=== PATIENT | female | born 1935 | race Caucasian/White ===

== ENCOUNTER 2016-11-11 13:56 | Observation (INO) | payer MEDICARE, BC ==
[~2016-11-11] VITALS: Ht 157.5 cm; Wt 67.6 kg
[~2016-11-11 13:56] MED LIST: ALDACTONE25 MG PO; AMLO5TAB PO; ASPIRIN CHILDRE81 M1 PO; BACTRIM DS 8001 TA1 PO; BACTRIM DS 8001 TAB PO; BISOPROLOL 5MG T5 MG PO; BISOPROLOL/HCTZ1 TA2 PO; BISOPROLOL10 MG PO; BUSPIRONE 5MG TA5 MG; BYSTOLIC5 MG PO; DIGOX0.125 MG PO; DILTIAZEM HCL180 MG PO; FISH OIL1000 MG; FUROSEMIDE 20MG20 MG PO; LEVOTHYROXIN0.075 M3 PO; LOSARTAN POTASS50 MG PO; LOVASTATIN40 MG PO; MICROZIDE12.5 MG PO; MOTRIN 600MG.600 MG PO; NAMENDA XR28 MG PO; NITROLINGU0.4 MG/ACT SL; OMEPRAZOLE20 MG PO; PREMARIN 0.3MG0.3 MG PO; PYRIDIUM100 MG PO; SYNTHROID 0.00.05 MG PO; XARELTO STARTER20 MG PO; XARELTO15 MG PO
[2016-11-11 14:00] VITALS: BP 91/46
[2016-11-11 14:19] LABS: HEMOGLOBIN 10.9 g/dL (12.2-16.2)
[2016-11-11 14:20] LABS: LYMPH % 15.8 % (10-50.0)
[2016-11-11 14:21] LABS: LYMPH # 1.6 K/mm3 (0.7-4.5)
--- NOTE | 2016-11-11 14:27 | Emergency Room Report ---
History of Present Illness Time Seen by MD Smyth Presenting Problem in Triage Pt arrived:Wheelchair Presenting Problem:PT ADVISES THAT WHILE SITTING DOWN AT A [employer] TO EAT, SHE BEGAN TO FEEL DIZZY AND ALMOST PASSED OUT. PT C/O FEELING WEAK. 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 N Clinical Suspician of Infection? N Mental Status: 1 - Regular (Normal Baseline) Sepsis Risk:Low Sepsis Risk Have you (or family members/close friends) recently traveled outside the [place]? N If Yes, where/when: Have you had exposure to infectious disease within the past month? N TB? Other? Specify: Patient feels dizzy when she stands up. Today she felt dizzy while sitting and had a near syncopal episode witnessed by family. No chest pain or palpitations. No congestion. No fever or vomiting. No cephalgia or abdominal pain. Has extensive cardiac hx, reports is a candidate strictly for medical treatment, no further invasive therapy. Has PM/Debrillator. ALLERGIES Coded Allergies: No Known Allergies (05/13/16) Home Medications Reported Medications Lovastatin 40 MG PO DAILY DILTIAZEM HCL (Diltiazem 24HR ER) 180 MG PO DAILY NEBIVOLOL HCL (Bystolic) 10 MG PO DAILY Furosemide (Furosemide) 40 MG PO DAILY Spironolactone (Aldactone) 25 MG PO DAILY Digoxin (Digox) 0.125 MG PO DAILY Nitroglycerin (Nitrolingual [place]) 1 SPRAY SL PRN PRN CHEST PAIN MEMANTINE HCL (Namenda XR) 28 MG PO DAILY Rivaroxaban (Xarelto) 15 MG PO QPM LEVOTHYROXINE SOD (Levothyroxine 0.075MG Tablet) 0.075 MG PO DAILY Omeprazole (Omeprazole 20MG) 1 TAB PO DAILY History Medical History General CAD? No Angina: Yes [place]: Yes Hypertension? Yes Hyperlipidemia? Yes CHF? No DVT? No PE? No COPD? Yes Asthma? Yes Anemia? No GERD? Yes Gastric ulcers? No GI Bleed? No Hernia? No Thyroid Problems? Yes Hypothyroidism? Yes CVA? No Seizures? No Diabetes? No Renal Insuffiency? No End Stage Renal Disease? No UTI? No Stones? No BPH? No GB Disease: Yes Nephritic Syndrome? No Asplenia? No Hepatitis? No Sickle Cell Disease? No Arthritis? No Migraines? No Cataracts? Yes Glaucoma? No MRSA? No HIV? No TB? No Anxiety? No Depression? No Cancer? No More? No Immunization Hx DT/Tetanus 1-4 Years Ago Flu 2016-17FSN Pneumonia Received In Past Surgical Hx Previous Surgery?Y Gallbladd Hysterect Eye Coronary Artery Bypass HEART STENTS PACEMAKER PLACEMENT Family History Family Hx Diabetes Yes CAD Yes Hypertension Yes Hyperlipidemia Yes Cancer Yes TB Yes Social History Smoking Hx Smoker: Never Smoker Tobacco: No Alcohol Alcohol: No Review of Systems All Other Systems Reviewed and Negative Psychiatric/Neurological see HPI Comment hemoglobin was 11.4 earlier this year Physical Exam Vital Signs Vital Signs Date Time Temp Pulse Resp B/P Pulse O2 O2 Flow FiO2 Ox Delivery Rate 11/11 1443 70 16 99/50 99 11/11 1400 98.4 70 16 91/46 99 General Appearance normal appearance, WD/WN, no apparent distress Eye Exam - bilateral eye normal exam, bilateral eye PERRL, bilateral eye EOMI (no diplopia) Ear, Nose, Throat hearing grossly normal, normal ENT inspection, normal pharynx (OP wet) Neck normal inspection, non-tender, supple, full range of motion Respiratory Status Yes: trachea midline, chest symmetrical, non tender chest. No: respiratory distress, tender on palpation, use of accessory muscles, pain on inspiration, pain on expiration, productive cough, non productive cough. Lung Sounds bilateral: normal breath sounds, lungs clear. Cardiovascular normal exam, regular rate/rhythm, no peripheral edema, no gallop, no JVD, no murmur, no rub, normal peripheral pulses Gastrointestinal normal bowel sounds, normal exam, non tender, soft, no organomegaly, no pulsatile mass, no guarding, no rebound Extremities non-tender, normal range of motion, normal inspection, normal capillary refill, no calf tenderness, no pedal edema, pelvis stable Strength 5 Upper Ext (L), 5 Upper Ext (R), 5 Lower Ext (L), 5 Lower Ext (R) Neurologic alert, protocol officer II-XII nml as tested, normal exam, no motor/sensory deficits, oriented x 3 (speech clear; no tremor), NIHSS 0 as checked Glascow Coma Scale Glascow Coma Scale Response Value EYE response: 4 Spontaneously 4 MOTOR response: 6 OBEYS 6 VERBAL response: 5 Oriented & Converses 5 Total 15 Reflexes DTR 2+ ankle (R), 2+ ankle (L) Skin intact, normal color, warm/dry Medical Decision Making LABS/Meds/Orders Pt receiving controlled substance in ED? No Results/Orders Laboratory Tests 11/11/16 1405: Sodium 136, Potassium 4.7, Chloride 101, Carbon Dioxide 22, BUN 62 H, Creatinine 2.7 H, Estimated Creat Clear 16 L, Estimated GFR (MDRD) 17 *L, Glucose 117 H, Calcium 9.1, Total Bilirubin 0.4, AST 14 L, ALT 21, Alkaline Phosphatase 101, Creatine Kinase 39, CK-MB (CK-2) Rel Index 1.8, CK and CKMB Interp 0.7, Troponin I 0.02, Total Protein 8.4 H, Albumin 3.3 L, Globulin 5.1 H, Albumin/Globulin Ratio 0.6 L, WBC 9.9, RBC 3.92 L, Hgb 10.9 L, Hct 33.9 L , MCV 86.6, RDW 17.3, Plt Count 264, Gran % 79.5, Gran # 7.9 H, Lymphocytes % 15.8, Monocytes % 4.7, Lymphocytes # 1.6, Monocytes # 0.5, PUBS MCHC 32.2, MCH 27.8 Current Medication Orders Sig/Ruddy Start time Last Medication Dose Route Stop Time Status Admin Sodium Chloride 1,000 ML .Q4H 11/11 1515 AC 11/11 IV 11/11 1914 1531 Sodium Chloride 10 ML PRN PRN 11/11 1515 AC IV 11/12 1506 Sodium Chloride 10 ML PRN PRN 11/11 1415 AC IV 11/12 1407 Orders Procedure Date/time Status DIET-NOTHING BY MOUTH 11/11 D Active Decision to admit 11/11 1520 Active GEN NSG/PT REQ (NOT FOR MEDS!) 11/[address] HEAD REQ 11/11 1415 Complete ELECTROCARDIOGRAM REQUEST 11/11 1407 Active CHEST-PORTABLE 11/11 1407 Active IV SALINE LOCK 11/11 1407 Active CBC WITH AUTO DIFF 11/11 1407 Complete CARDIAC ENZYMES 11/11 1407 Complete CHEM 12 PROFILE 11/11 1407 Complete 12 LEAD EKG-CYNTHIA (INITIAL) 11/11 UNK Active CM/EKG CM/EKG EKG rate, NSR, rhythm, no evid. of ischemic chgs, no ectopy, normal QRS, normal MD, normal EKG (paced vent. rhythm 70) XRAY/CT/US XRAY/CT/US XRAY chest XR interpretation by reviewed by me Xray Results normal/NAD (PM, sternotomy wires neg acute) CT head CT interpretation by reviewed by me, discussed w/radiologist Time results known: 151 CT Results normal/NAD Consult MD Physician Consult Time Called 1513 Reason Pt. Condition Comments Dr. Cynthia elkins. Progress ED Progress Notes Date 11/11/16 Time 1548 Comment BP goes to 70's systolic when standing with positive lightheadedness. Have initiated fluids and admission. Departure Departure Time of Disposition 1515 Disposition Still a Patient Clinical Impression Primary Impression: Orthostatic hypotension Secondary Impressions: Near syncope Condition STABLE ED Critical Care Critical Care No at 1548
--- NOTE | 2016-11-11 15:14 | RADIOLOGY REPORT PS360 ---
CT HEAD W/O CONTRAST COMPARISON: HISTORY: Dizziness TECHNIQUE: Multiaxial scans obtained from base skull to the vertex and were performed without IV contrast. FINDINGS: The base of skull appears grossly normal, the mastoids are clear. Both internal auditory canals appear normal. There is minimal fluid in the right ethmoid sinuses. The basilar cisterns are mildly prominent. The ventricular system is normal for age. The sylvian fissures and cortical sulci are somewhat prominent. There are periventricular hypodensities consistent with chronic ischemic white matter changes. There is no bleed and there are no extra-axial fluid collections. The bony calvarium appears intact. IMPRESSION: 1. Findings of age-appropriate cortical atrophy with moderate chronic ischemic periventricular white matter changes. 2. Possible mild right ethmoid sinusitis
--- NOTE | 2016-11-11 15:58 | RADIOLOGY REPORT PS360 ---
CHEST-PORTABLE COMPARISON: Portable upright chest 05/13/2016 HISTORY: Dizziness TECHNIQUE: AP upright chest FINDINGS: There is mild hyperexpansion of lung whitfield but I see no infiltrate. Sternal wire sutures are again noted. The A ICD device with bipolar electrodes is again noted. There are calcified granulomata left lung field. There is no pneumothorax. IMPRESSION: Nonacute chest findings
--- NOTE | 2016-11-11 17:44 | HISTORY AND PHYSICAL REPORT ---
Demographics: Admit date: 11/11/16 Chief complaint: Syncope/dizziness PRIMARY DIAGNOSIS: acute kidney injury Allergies: Coded Allergies: No Known Allergies (05/13/16) History of present illness: History of present illness: 81-year-old white female with a history of congestive heart failure, ejection fraction 40 percent on echocardiogram May 2016, along with recurrent dysrhythmia status post pacemaker implantation and chronic atrial fibrillation currently on Xarelto therapy, who presented to the emergency department after an episode of syncope at a local restaurant while eating lunch with family. She states that she has felt poorly over the past couple of weeks with increasing cough and some shortness of air, has felt like her ALLERGIES are becoming worse, and yesterday had a quite exhausting day going to a local community meeting and then lunch with her siblings today. Her daughters report that she does not drink a lot of water or other fluids during the day and they are always encouraging her to drink. In the emergency department she was found to have elevated BUN and creatinine over baseline. Other labs were essentially unremarkable, admitted to hospital for IV fluids and further diagnostic testing. Past medical history: Family HX Diabetes Yes CAD Yes Hypertension Yes Hyperlipidemia Yes Cancer Yes TB Yes Immunization HX DT/Tetanus 1-4 Years Ago Flu 2015-FSN Pneumonia Received In Past General CAD? No Angina: Yes [place]: Yes Hypertension? Yes Hyperlipidemia? Yes CHF? No DVT? No PE? No COPD? Yes Asthma? Yes Anemia? No GERD? Yes Gastric ulcers? No GI Bleed? No Hernia? No Thyroid Problems? Yes Hypothyroidism? Yes CVA? No Seizures? No Diabetes? No Renal Insuffiency? No UTI? No Stones? No BPH? No GB Disease: Yes Nephritic Syndrome? No Asplenia? No Hepatitis? No Sickle Cell Disease? No Arthritis? No Migraines? No Cataracts? Yes Glaucoma? No MRSA? No HIV? No TB? No Anxiety? No Depression? No Cancer? No More? No Past Surgical HX Previous Surgery?Y Gallbladd Hysterect Eye Coronary Artery Bypass HEART STENTS PACEMAKER PLACEMENT Current home meds: Reported Medications Lovastatin 40 MG PO DAILY DILTIAZEM HCL (Diltiazem 24HR ER) 180 MG PO DAILY NEBIVOLOL HCL (Bystolic) 10 MG PO DAILY Furosemide (Furosemide) 40 MG PO DAILY Spironolactone (Aldactone) 25 MG PO DAILY Digoxin (Digox) 0.125 MG PO DAILY Nitroglycerin (Nitrolingual [place]) 1 SPRAY SL PRN PRN CHEST PAIN MEMANTINE HCL (Namenda XR) 28 MG PO DAILY Rivaroxaban (Xarelto) 15 MG PO QPM LEVOTHYROXINE SOD (Levothyroxine 0.075MG Tablet) 0.075 MG PO DAILY Omeprazole (Omeprazole 20MG) 1 TAB PO DAILY Social Hx: Smoking HX Tobacco No Alcohol Alcohol: No Hx of Drug Use Drug Use? No Patien't marital status is Patient's support system is good Review of systems: Constitutional malaise, weakness. No: fever. Respiratory cough, shortness of breath, SOB with excertion, SOB at rest. No: stridor, wheezing. Cardiovascular see HPI Gastrointestinal/Abdominal poor appetite, poor fluid intake Genitourinary No: no symptoms reported. Musculoskeletal back pain. Neurological Yes: see HPI, weakness. Exam: Lab data for last 24 hours: Laboratory Tests 11/11/16 1405: Sodium 136, Potassium 4.7, Chloride 101, Carbon Dioxide 22, BUN 62 H, Creatinine 2.7 H, Estimated Creat Clear 16 L, Estimated GFR (MDRD) 17 *L, Glucose 117 H, Calcium 9.1, Total Bilirubin 0.4, AST 14 L, ALT 21, Alkaline Phosphatase 101, Creatine Kinase 39, CK-MB (CK-2) Rel Index 1.8, CK and CKMB Interp 0.7, Troponin I 0.02, Total Protein 8.4 H, Albumin 3.3 L, Globulin 5.1 H, Albumin/Globulin Ratio 0.6 L, WBC 9.9, RBC 3.92 L, Hgb 10.9 L, Hct 33.9 L , MCV 86.6, RDW 17.3, Plt Count 264, Gran % 79.5, Gran # 7.9 H, Lymphocytes % 15.8, Monocytes % 4.7, Lymphocytes # 1.6, Monocytes # 0.5, PUBS MCHC 32.2, MCH 27.8, Digoxin 2.44 Admission vital signs: 1ST Vital Signs Result Date Time Pulse Ox 99 11/11 1400 B/P 91/46 11/11 1400 Temp 98.4 11/11 1400 Pulse 70 11/11 1400 Resp 16 11/11 1400 Additional information: Patient is pleasant, talkative and has a hoarse voice over her baseline. She has postnasal drainage but no actual redness of the throat. ENT exam otherwise clear. Lungs clear bilaterally in the anterior and posterior whitfield, heart rate regular, occasional ectopic beat. Flow murmur as previously noted. Abdomen soft and nontender, no skin turgor dry. Neurologic exam intact with no facial nerve deficits and able to move all extremities but global weakness noted. Plan: Problem List 1. Syncope Status Chronic 2. Chronic a-fib 3. Orthostatic hypotension 4. Acute kidney injury 5. Febrile illness Plan: Probable dehydration in this patient on dual diuretic therapy. Gentle hydration overnight. I'm a little concerned about the temperature elevation in the hospital. Check throat cultures, PCR testing. Repeat chest x-ray tomorrow after hydration if clinically appropriate. Check urinalysis and urine culture. Hold diuretics. Continue beta yunior. Continue anticoagulation therapy. at 1696
[2016-11-11 17:45] VITALS: BP 123/56
[2016-11-11 17:57] VITALS: BP 123/56
[2016-11-11] MEDS ORDERED: PREMARIN 0.3MG0.3 MG PO (18:50)
[2016-11-11] MEDS ORDERED: LOSARTAN POTASS50 MG PO (18:52)
[2016-11-11] MEDS ORDERED: COREG 3.125M3.125 MG PO (18:53)
[2016-11-11 19:44] LABS: CORONAVIRUS 229E NOT DETECTED (NOT DETECTE); CORONAVIRUS HKU 1 NOT DETECTED (NOT DETECTE); CORONAVIRUS NL63 NOT DETECTED (NOT DETECTE); CORONAVIRUS OC43 NOT DETECTED (NOT DETECTE); RHINOVIRUS/ENTEROVIRUS NOT DETECTED (NOT DETECTE)
[2016-11-11 20:00] VITALS: BP 108/56
[2016-11-11 22:20] LABS: URINE BILIRUBIN - DIPSTICK NEGATIVE (NEG); URINE BLOOD NEGATIVE (NEG)
[2016-11-12] VITALS (7 sets, daily range): BP systolic 107–138; BP diastolic 56–72
[2016-11-12 07:51] LABS: LYMPH % 24.4 % (10-50.0)
--- NOTE | 2016-11-12 08:12 | ACUTE CARE PROGRESS NOTE (QUA) ---
Progress Notes Subjective Date 11/12/16 Time 0810 Patient/family reports: feeling better, no complaints (good po) Nursing reports: alert, no complaints Objective Findings Last VS-Temp:97.5 B/P:132/69 Pulse:70 Resp:18 SaO2:98 ROOM AIR Last weight lbs:149 oz:0 K.586 Method:Bed Scales Exam General appearance: alert, active Eyes: anicteric ENT: normal exam, mucous membranes moist Cardiovascular: no JVD, no ectopics Respiratory: aerating well Assessment/Plan Problem List 1. Syncope Status: Chronic 2. Chronic a-fib 3. Orthostatic hypotension 4. Acute kidney injury 5. Febrile illness Patient condition Improving Plan: continue current care, Creatinine now 2.1 - one more day of IVF - d/c in am? This inpt stay is expected to cross 2 MNs from start of care No at 0811
[2016-11-12 08:14] LABS: HEMOGLOBIN 9.4 g/dL (12.2-16.2)
--- NOTE | 2016-11-12 13:37 | PHARMACY CLINIC NOTE ---
Patient Demographics Patient Demographics Admission date: 11/11/16 Date: 11/12/16 Time: 1335 Allergies Coded Allergies: No Known Allergies (05/13/16) HEIGHT- FT: 5 IN: 2.00 K.586 VTE General Information Labs: Laboratory Tests 11/12 11/11 0608 1405 Hematology Hgb (12.2 - 16.2 g/dL) 9.4 L 10.9 L Hct (37.0 - 47.0 %) 28.3 L 33.9 L Plt Count (142 - 424 K/mm3) 223 264 Disclaimer The following section includes nursing documentation that has been pulled in for pharmacy review. Patient's VTE score: 2 Patient's VTE Risk: VERY LOW RISK Clinical trial participant? No VTE prophylaxis NQF [id number] VTE prophylaxis ordered? Yes Type of prophylaxis/treatment: Heparin (XARELTO ORDERED), BEVERLY at [phone]
[2016-11-13 00:07] VITALS: BP 125/72
[2016-11-13 04:25] VITALS: BP 146/82
--- NOTE | 2016-11-13 07:30 | ACUTE CARE PROGRESS NOTE (QUA) ---
Progress Notes Subjective Date 11/13/16 Time 0729 Note Patient feels better, has been eating breakfast well and drinking some hot chocolate. No nausea, no vomiting, good urine output. Patient alert, lungs clear, heart rate regular, abdomen soft. Objective Findings Laboratory Tests 11/13/16 0620: Sodium 142, Potassium 4.3, Chloride 113 H, Carbon Dioxide 19 L, BUN 32 H, Creatinine 1.6 H, Estimated Creat Clear 28 L, Estimated GFR (MDRD) 31 L, Glucose 100, Calcium 7.8 L Last VS-Temp:98.1 B/P:146/82 Pulse:78 Resp:18 SaO2:97 ROOM AIR Last weight lbs:149 oz:0 K.586 Method:Bed Scales Assessment/Plan Problem List 1. Syncope Status: Chronic 2. Chronic a-fib 3. Orthostatic hypotension 4. Acute kidney injury 5. Febrile illness Patient condition Improving Plan: initiate discharge plan This inpt stay is expected to cross 2 MNs from start of care No at 0793
--- NOTE | 2016-11-13 07:31 | DISCHARGE SUMMARY STANDARD ---
Demographics Admit date: 11/11/16 Discharge date: 11/13/16 History of present illness History of present illness 81-year-old white female with a history of congestive heart failure, ejection fraction 40 percent on echocardiogram May 2016, along with recurrent dysrhythmia status post pacemaker implantation and chronic atrial fibrillation currently on Xarelto therapy, who presented to the emergency department after an episode of syncope at a local restaurant while eating lunch with family. She states that she has felt poorly over the past couple of weeks with increasing cough and some shortness of air, has felt like her ALLERGIES are becoming worse, and yesterday had a quite exhausting day going to a local [employer] meeting and then lunch with her siblings today. Her daughters report that she does not drink a lot of water or other fluids during the day and they are always encouraging her to drink. In the emergency department she was found to have elevated BUN and creatinine over baseline. Other labs were essentially unremarkable, admitted to hospital for IV fluids and further diagnostic testing. Hospital Course Hospital Course: Patient was admitted, cautious IV fluids were started and her creatinine improved in a stepwise fashion from 2.6 down to this morning's level of 1.6. This is close to her baseline. She's had good urine output, good by mouth intake. Exam has normalized to her baseline. She'll be discharged home today with instructions to slightly be more aggressive with hydration. I will ask her to hold her spironolactone until I see her in the office on Monday, 2016 with a BMP at that point. Discharge diagnoses Problem List 1. Syncope Status Chronic 2. Chronic a-fib 3. Orthostatic hypotension 4. Acute kidney injury 5. Febrile illness Medications Medications: Discharge meds are as noted. Follow up Follow up in office in: 3 DAYS with: Issa Nuñez MD at 2872
[2016-11-13 07:46] VITALS: BP 146/82
[2016-11-13 07:54] VITALS: BP 116/61
[2016-11-13 09:07] VITALS: BP 116/61
--- OUTSIDE RECORDS SUMMARY | 2016-12-06 12:43 | External Medical Summary Rpt ---
Author Author , HEYDI MAURERJOSEPH Address Unknown Phone [email or web address] Care Team Providers Care Satellite Specialist Name Role Phone Issa Nuñez MD, Unavailable Unavailable Issa Nuñez MD Purpose Continuity of Care Document - 05-01-2012 through 2016 Problems Code Diagnosis DOS Provider Status 780.2 Syncope [facility] Allergies, Adverse Reactions, Alerts Type Allergy to substance Adverse Reaction to Substance Substance Reaction Severity NO KNOWN ALLERGIES Unknown Unknown Medications Na ND Rx Da Fi Fi Am Da Di Ph RX Ph St me C No te ll ll ou ys ag ar # ys at rm s nt no ma ic us Or Da si cy ia de te s n re d KE 00 03 0 No TO 40 -0 RO 93 5- Lo LA 79 20 ng C 50 13 er 30 1 Ac MG ti /M ve L AL Vital Signs 05-01-2012 14:31 Name Value Interpretat Reference Comment ion Range BP 100 mm[Hg] Diastolic BP Systolic 189 mm[Hg] Heart 67 /min Rate/Pulse O2% 98 % Respiratory 20 /min Rate 05-01-2012 11:57 Name Value Interpretat Reference Comment ion Range BP 78 mm[Hg] Diastolic BP Systolic 156 mm[Hg] Heart 67 /min Rate/Pulse O2% 94 % Respiratory 20 /min Rate Results Labs Lab Lab Date Result Refere Interp Status Commen Order Detail nces retati t Range on Urinalysis dipstick W Reflex Microscopic panel in Urine (11-11-2016 22:00) Bacteri TRACE O complet a 017 ed [Presen 22:00 ce] in Urine sedimen t by Light microsc opy Erythro OCC 0 complet cytes 017 ed [Presen 22:00 ce] in Urine sedimen t by Light microsc opy Epithel 3-5 0#/hp complet ial 017 f - ed cells.s 22:00 5#/hp quamous f [Presen ce] in Urine sedimen t by Microsc opy high power field Urinalysis dipstick W Reflex Microscopic panel in Urine (11-11-2016 22:00) Appeara CLEAR CLEAR complet nce of 017 ed Urine 22:00 Bilirub NEGATIV NEG complet in 017 E ed [Presen 22:00 ce] in Urine by Test strip Erythro NEGATIV NEG complet cytes 017 E ed [Presen 22:00 ce] in Urine Color YELLOW YELLOW complet of 017 ed Urine 22:00 Ketones NEGATIV NEG complet 017 E ed [Presen 22:00 ce] in Urine by Automat ed test strip Mucus NEGATIV NEG complet [Presen 017 E ed ce] in 22:00 Urine sedimen t by Light microsc opy Nitrite NEGATIV NEG complet 017 E ed [Presen 22:00 ce] in Urine by Test strip Urobili 0.2 NEG complet nogen 017 ed [Presen 22:00 ce] in Urine by Test strip Streptococcus pyogenes Ag [Presence] in Unspecified specimen (11-11-2016 17:50) Strepto NEGATIV complet coccus 017 E ed pyogene 17:50 s Ag [Presen ce] in Unspeci fied specime n BASIC METABOLIC PANEL (05-01-2012 13:40) Glucose 95 74-106 complet 013 mg/dL ed Bld-mCn 13:40 c BUN 14 7-18 complet Bld-mCn 013 mg/dL ed c 13:40 Creat 1.2 0.6-1.0 complet SerPl-m 013 mg/dL ed Cnc 13:40 ESTIMAT 47 50-200 complet ED 013 ML/MIN ed CREATIN 13:40 INE CLEARAN CE GFR 43 59- complet (ESTIMA 013 ML/MIN ed BEVER[place]) 13:40 Sodium 135 136-145 complet SerPl-s 013 mmoL/L ed Cnc 13:40 Potassi 03-05-2 3.8 3.5-5.1 complet um 013 mmoL/L ed SerPl-s 13:40 Cnc Chlorid 03-05-2 102 98-107 complet e 013 mmoL/L ed SerPl-s 13:40 Cnc CO2 -05-2 26 21.0-32 complet SerPl-s 013 mmoL/L .0 ed Cnc 13:40 Calcium 03-05-2 8.6 8.5-10. complet 013 mg/dL 1 ed SerPl-m 13:40 Cnc D Dimer PPP (05-01-2012 13:40) D Dimer 03-05-2 391 0-400 complet PPP 013 ng/mL ed 13:40 CBC with AUTO DIFF (05-01-2012 13:40) WBC # 03-05-2 8.8 4.8-10. complet Bld 013 K/MM3 8 ed Auto 13:40 RBC # 03-05-2 4.46 4.2-5.4 complet Bld 013 M/mm3 ed Auto 13:40 Hgb 03-05-2 13.0 12.2-16 complet Bld-mCn 013 g/dL .2 ed c 13:40 Hct Fr 03-05-2 39.3 % 37.0-47 complet Bld 013 .0 ed 13:40 MCV RBC 03-05-2 88.2 fl 82.2-97 complet 013 .8 ed 13:40 MCH RBC 03-05-2 29.2 pg 27-31.2 complet Qn 013 ed Auto 13:40 MEAN 03-05-2 33.1 31.8-35 complet CORPUSC 013 g/dl .4 ed ULAR 13:40 HGB CONC RDW RBC 03-05-2 13.5 % 11.5-17 complet Auto 013 .5 ed 13:40 Platele 03-05-2 300 142-424 complet t Bld 013 K/mm3 ed Ql 13:40 Manual MEAN 03-05-2 7.5 fl 7.4-10. complet PLATELE 013 4 ed T 13:40 VOLUME Granulo 03-05-2 70.5 % 37.0-80 complet cytes 013 .0 ed Fr Bld 13:40 Auto LYMPH % 03-05-2 22.0 % 10-50.0 complet 013 ed 13:40 Monocyt 03-05-2 5.6 % 1.7-9.3 complet es Fr 013 ed Bld 13:40 Auto Eosinop 03-05-2 1.5 % 0.1-12. complet hil Fr 013 0 ed Bld 13:40 Auto Basophi 03-05-2 0.3 % 0.1-2.0 complet ls Fr 013 ed Bld 13:40 Auto Granulo 03-05-2 6.2 1.8-7.8 complet cytes # 013 K/mm3 ed Bld 13:40 Auto Lymphoc -05-2 1.9 0.7-4.5 complet ytes Fr 013 K/mm3 ed Bld 13:40 Auto Monocyt 03-05-2 0.5 0.1-1.0 complet es # 013 K/mm3 ed Bld 13:40 Auto Eosinop -05-2 0.1 0.0-0.4 complet hil # 013 K/mm3 ed Bld 13:40 Auto Basophi 03-05-2 0.0 0-0.2 complet ls # 013 K/MM3 ed Bld 13:40 Auto ESR Bld Qn 15M (05-01-2012 13:40) ESR Bld -05-2 64 0-30 complet Qn 15M 013 mm/hr ed 13:40 Encounters Encounter Start End Date Code Location Performer Type Date Emergency ELIANA Iglesias MD (ER) 3 11:13 3 14:32 [facility]
--- OUTSIDE RECORDS SUMMARY | 2016-12-06 12:43 | External Medical Summary Rpt ---
Author Author , HEYDI MAURERJOSEPH Address Unknown Phone [email or web address] Care Team Providers Care Cook Italian Style Food Name Role Phone Issa Nuñez MD, Unavailable Unavailable Issa Nuñez MD Purpose Continuity of Care Document - 05-01-2012 through 2016 Problems Code Diagnosis DOS Provider Status 780.2 Syncope [facility] Allergies, Adverse Reactions, Alerts Type Allergy to [...] Iglesias MD (ER) 3 11:13 3 14:32 [facility]
--- OUTSIDE RECORDS SUMMARY | 2016-12-06 12:44 | External Medical Summary Rpt ---
Author Author [employer] Organization [employer] Address Unknown Phone Unavailable Purpose Continuity of Care Document - through 2016
--- OUTSIDE RECORDS SUMMARY | 2016-12-06 12:44 | External Medical Summary Rpt ---
Author Author , HEYDI SOLIZ Address Unknown Phone [email or web address] Immunization Name Date Rout CVX Reac Dose Comm Prov Is Faci e tion ent ider Refu lity Give sed n Infl 09-2 Intr 0.5 Hist PD20 No PD20 uenz 0-20 amus mL oric 255 255 a 17 cula al Quad r Info rmat W/Pr ion es - Sour ce Unsp ecif ied Infl 09-2 Intr 135 0.5 Hist KHAF No RITE uenz 9-20 amus mL oric CUAUHTEMOC AID0 a, 16 cula al AYMA 3938 High r Info N rmat Dose ion - Sour ce Unsp ecif ied PCV1 09-2 Intr 133 0.5 Hist BRIAN No RITE 3 9-20 amus mL oric ENCE AID0 16 cula al 3938 r Info JANET rmat H ion - Sour ce Unsp ecif ied
--- OUTSIDE RECORDS SUMMARY | 2016-12-06 12:44 | External Medical Summary Rpt ---
Author Author , HEYDI SOLIZ Address Unknown Phone [email or web address] Immunization Name Date Rout CVX Reac Dose [...]
--- OUTSIDE RECORDS SUMMARY | 2016-12-06 12:45 | External Medical Summary Rpt ---
Author Author [facility] [employer], [facility] [employer] Organization [facility] [employer] Address Unknown Phone Unavailable Results Basic metabolic panel in Blood Observa Value Referen Units Interpr Notes Date tion ce etation Range DR PIERCE RESULTS BY APPT TIME AT 1100 TODAY Urea 7 - 18 mg/dL High No Sep 20 nitrogen informati 2017 [Mass/vol on in 10:19 AM ume] in source Serum or data Plasma Calcium 8.5 - mg/dL Normal No Sep 20 [Mass/vol 10.1 informati 2017 ume] in on in 10:19 AM Serum or source Plasma data Chloride 98 - 107 mmoL/L Normal No Sep 20 [Moles/vo informati 2017 lume] in on in 10:19 AM Serum or source Plasma data Carbon 21.0 - mmoL/L Normal No Sep 20 dioxide, 32.0 informati 2017 total on in 10:19 AM [Moles/vo source lume] in data Serum or Plasma Creatinin 0.55 - mg/dL High No Sep 20 e 1.02 informati 2017 [Mass/vol on in 10:19 AM ume] in source Serum or data Plasma Estimated 59- ML/MIN Low REFERENCE Sep 20 RANGE: 2017 glomerula >60 10:19 AM r ML/MIN/1. filtratio 73 SQUARE n rate METERSIf (GF this patient is -A merican, then multiply theresult by 1.210. Glucose 74 - 106 mg/dL High No Sep 20 [Mass/vol informati 2017 ume] in on in 10:19 AM Serum or source Plasma data Potassium 3.5 - 5.1 mmoL/L Normal No Sep 20 informati 2017 [Moles/vo on in 10:19 AM lume] in source Serum or data Plasma Sodium 136 - 145 mmoL/L Low No Sep 20 [Moles/vo informati 2017 lume] in on in 10:19 AM Serum or source Plasma data Basic metabolic panel in Blood Observa Value Referen Units Interpr Notes Date tion ce etation Range Urea 7 - 18 mg/dL High No Sep 17 nitrogen informati 2017 6:20 [Mass/vol on in AM ume] in source Serum or data Plasma Calcium 8.5 - mg/dL Low No Sep 17 [Mass/vol 10.1 informati 2017 6:20 ume] in on in AM Serum or source Plasma data Chloride 98 - 107 mmoL/L High No Sep 17 [Moles/vo informati 2017 6:20 lume] in on in AM Serum or source Plasma data Carbon 21.0 - mmoL/L Low No Sep 17 dioxide, 32.0 informati 2017 6:20 total on in AM [Moles/vo source lume] in data Serum or Plasma Creatinin 0.55 - mg/dL High No Sep 17 e 1.02 informati 2017 6:20 [Mass/vol on in AM ume] in source Serum or data Plasma Creatinin 50 - 200 ML/MIN Low No Sep 17 e renal informati 2017 6:20 clearance on in AM source predicted data by Cockcroft -Gault formula Estimated 59- ML/MIN Low REFERENCE Sep 17 RANGE: 2017 6:20 glomerula >60 AM r ML/MIN/1. filtratio 73 SQUARE n rate METERSIf (GF this patient is -A merican, then multiply theresult by 1.210. Glucose 74 - 106 mg/dL Normal No Sep 17 [Mass/vol informati 2017 6:20 ume] in on in AM Serum or source Plasma data Potassium 3.5 - 5.1 mmoL/L Normal No Sep 17 informati 2016 6:20 [Moles/vo on in AM lume] in source Serum or data Plasma Sodium 136 - 145 mmoL/L Normal No Sep 17 [Moles/vo informati 2017 6:20 lume] in on in AM Serum or source Plasma data CBC W Auto Differential panel in Blood Observa Value Referen Units Interpr Notes Date tion ce etation Range Basophils 0 - 0.2 K/MM3 Normal No Sep 16 informati 2017 6:08 [#/volume on in AM ] in source Blood by data Automated count Basophils 0.1 - 2.0 % Normal No Sep 16 /100 informati 2017 6:08 leukocyte on in AM s in source Blood by data Automated count Eosinophi 0.0 - 0.4 K/mm3 Normal No Sep 16 ls informati 2016 6:08 [#/volume on in AM ] in source Blood by data Automated count Eosinophi 0.1 - % Normal No Sep 16 ls/100 12.0 informati 2017 6:08 leukocyte on in AM s in source Blood by data Automated count Granulocy 1.8 - 7.8 K/mm3 Normal No Sep 16 kunal informati 2017 6:08 [#/volume on in AM ] in source Blood by data Automated count Granulocy 37.0 - % Normal No Sep 16 kunal/100 80.0 informati 2017 6:08 leukocyte on in AM s in source Blood by data Automated count Hematocri 37.0 - % Low No Sep 16 t [Volume 47.0 informati 2017 6:08 on in AM Fraction] source of Blood data Hemoglobi 12.2 - g/dL Low No Sep 16 n 16.2 informati 2017 6:08 [Mass/vol on in AM ume] in source Blood data Lymphocyt 0.7 - 4.5 K/mm3 Normal No Sep 16 es informati 2017 6:08 [#/volume on in AM ] in source Unspecifi data ed specimen by Automated count Lymphocyt 10 - 50.0 % Normal No Sep 16 es informati 2017 6:08 [#/volume on in AM ] in source Unspecifi data ed specimen by Automated count Erythrocy 27 - 31.2 pg Normal No Sep 16 te mean informati 2017 6:08 corpuscul on in AM ar source hemoglobi data n [Entitic mass] Erythrocy 31.8 - g/dl Normal No Sep 16 te mean 35.4 informati 2017 6:08 corpuscul on in AM ar source hemoglobi data n concentra tion [Mass/vol ume] by Automated count Erythrocy 82.2 - fl Normal No Sep 16 te mean 97.8 informati 2017 6:08 corpuscul on in AM ar volume source [Entitic data volume] by Automated count Monocytes 0.1 - 1.0 K/mm3 Normal No Sep 16 informati 2017 6:08 [#/volume on in AM ] in source Blood by data Automated count Monocytes 1.7 - 9.3 % Normal No Sep 16 /100 informati 2017 6:08 leukocyte on in AM s in source Blood by data Automated count Platelet 7.4 - fl Normal No Sep 16 mean 10.4 informati 2016 6:08 volume on in AM [Entitic source volume] data in Blood by Automated count Platelets 142 - 424 K/mm3 Normal No Sep 16 informati 2017 6:08 [#/volume on in AM ] in source Blood data Erythrocy 4.2 - 5.4 M/mm3 Low No Sep 16 kunal informati 2017 6:08 [#/volume on in AM ] in source Amniotic data fluid Erythrocy 11.5 - % Normal No Sep 16 te 17.5 informati 2017 6:08 distribut on in AM ion width source [Entitic data volume] by Automated count Leukocyte 4.8 - K/MM3 Normal No Sep 16 s 10.8 informati 2017 6:08 [#/volume on in AM ] in source Blood data Basic metabolic panel in Blood Observa Value Referen Units Interpr Notes Date tion ce etation Range Urea 7 - 18 mg/dL High No Sep 16 nitrogen informati 2017 6:08 [Mass/vol on in AM ume] in source Serum or data Plasma Calcium 8.5 - mg/dL Low No Sep 16 [Mass/vol 10.1 informati 2017 6:08 ume] in on in AM Serum or source Plasma data Chloride 98 - 107 mmoL/L High No Sep 16 [Moles/vo informati 2017 6:08 lume] in on in AM Serum or source Plasma data Carbon 21.0 - mmoL/L Low No Sep 16 dioxide, 32.0 informati 2017 6:08 total on in AM [Moles/vo source lume] in data Serum or Plasma Creatinin 0.55 - mg/dL High No Sep 16 e 1.02 informati 2017 6:08 [Mass/vol on in AM ume] in source Serum or data Plasma Creatinin 50 - 200 ML/MIN Low No Sep 16 e renal informati 2017 6:08 clearance on in AM source predicted data by Cockcroft -Gault formula Estimated 59- ML/MIN Low REFERENCE Sep 16 RANGE: 2017 6:08 glomerula >60 AM r ML/MIN/1. filtratio 73 SQUARE n rate METERSIf (GF this patient is -A merican, then multiply theresult by 1.210. Glucose 74 - 106 mg/dL Normal No Sep 16 [Mass/vol informati 2017 6:08 ume] in on in AM Serum or source Plasma data Potassium 3.5 - 5.1 mmoL/L Normal No Sep 16 informati 2017 6:08 [Moles/vo on in AM lume] in source Serum or data Plasma Sodium 136 - 145 mmoL/L Normal No Sep 16 [Moles/vo informati 2017 6:08 lume] in on in AM Serum or source Plasma data Troponin I.cardiac [Mass/volume] in Serum or Plasma Observa Value Referen Units Interpr Notes Date tion ce etation Range Troponin 0.00 - ng/mL Normal No Sep 15 I.cardiac 0.06 informati 2017 on in 11:10 PM [Mass/vol source ume] in data Serum or Plasma Urinalysis dipstick W Reflex Microscopic panel in Urine Observa Value Referen Units Interpr Notes Date tion ce etation Range Collected by nurse? Y Hold specimen in OE? N Appeara CLEAR CLEAR No No No Sep 15 nce of informa informa informa 2017 Urine tion in tion in tion in 10:00 source source source PM data data data Bacteri TRACE O No No No Sep 15 a informa informa informa 2016 [Presen tion in tion in tion in 10:00 ce] in source source source PM Urine data data data sedimen t by Light microsc opy Bilirub NEGATIV NEG No No No Sep 15 in E informa informa informa 2017 [Presen tion in tion in tion in 10:00 ce] in source source source PM Urine data data data by Test strip Erythro NEGATIV NEG No No No Sep 15 cytes E informa informa informa 2017 [Presen tion in tion in tion in 10:00 ce] in source source source PM Urine data data data Color YELLOW YELLOW No No No Sep 15 of informa informa informa 2017 Urine tion in tion in tion in 10:00 source source source PM data data data Glucose NEG No No No Sep 15 [Mass/vol informati informati informati 2017 ume] in on in on in on in 10:00 PM Urine by source source source Test data data data strip Ketones NEGATIV NEG mg/dL No No Sep 15 E informa informa 2017 [Presen tion in tion in 10:00 ce] in source source PM Urine data data by Automat ed test strip Mucus NEGATIV NEG No No No Sep 15 [Presen E informa informa informa 2017 ce] in tion in tion in tion in 10:00 Urine source source source PM sedimen data data data t by Light microsc opy Nitrite NEGATIV NEG No No No Sep 15 E informa informa informa 2017 [Presen tion in tion in tion in 10:00 ce] in source source source PM Urine data data data by Test strip pH of 5.0 - 8.5 No Normal No Sep 15 Urine informati informati 2017 on in on in 10:00 PM source source data data Protein NEG mg/dL No No Sep 15 [Mass/vol informati informati 2017 ume] in on in on in 10:00 PM Urine by source source Automated data data test strip Erythro OCC 0 rbc/hpf No No Sep 15 cytes informa informa 2017 [Presen tion in tion in 10:00 ce] in source source PM Urine data data sedimen t by Light microsc opy Specific 1.005 - No Normal No Sep 15 gravity 1.030 informati informati 2017 of Urine on in on in 10:00 PM source source data data Epithel 3-5 0 - 5 #/hpf No No Sep 15 ial informa informa 2017 cells.s tion in tion in 10:00 quamous source source PM data data [Presen ce] in Urine sedimen t by Microsc opy high power field Urobili 0.2 NEG E.U./dL No No Sep 15 nogen informa informa 2017 [Presen tion in tion in 10:00 ce] in source source PM Urine data data by Test strip Leukocyte O wbc/hpf No No Sep 15 s informati informati 2017 [#/volume on in on in 10:00 PM ] in source source Urine data data Urinalysis dipstick W Reflex Microscopic panel in Urine Observa Value Referen Units Interpr Notes Date tion ce etation Range Collected by nurse? Y Hold specimen in OE? N Appeara CLEAR CLEAR No No No Sep 15 nce of informa informa informa 2017 Urine tion in tion in tion in 10:00 source source source PM data data data Bilirub NEGATIV NEG No No No Sep 15 in E informa informa informa 2017 [Presen tion in tion in tion in 10:00 ce] in source source source PM Urine data data data by Test strip Erythro NEGATIV NEG No No No Sep 15 cytes E informa informa informa 2017 [Presen tion in tion in tion in 10:00 ce] in source source source PM Urine data data data Color YELLOW YELLOW No No No Sep 15 of informa informa informa 2017 Urine tion in tion in tion in 10:00 source source source PM data data data Glucose NEG No No No Sep 15 [Mass/vol informati informati informati 2017 ume] in on in on in on in 10:00 PM Urine by source source source Test data data data strip Ketones NEGATIV NEG mg/dL No No Sep 15 E informa informa 2017 [Presen tion in tion in 10:00 ce] in source source PM Urine data data by Automat ed test strip Mucus NEGATIV NEG No No No Sep 15 [Presen E informa informa informa 2016 ce] in tion in tion in tion in 10:00 Urine source source source PM sedimen data data data t by Light microsc opy Nitrite NEGATIV NEG No No No Sep 15 E informa informa informa 2016 [Presen tion in tion in tion in 10:00 ce] in source source source PM Urine data data data by Test strip pH of 5.0 - 8.5 No Normal No Sep 15 Urine informati informati 2017 on in on in 10:00 PM source source data data Protein NEG mg/dL No No Sep 15 [Mass/vol informati informati 2017 ume] in on in on in 10:00 PM Urine by source source Automated data data test strip Specific 1.005 - No Normal No Sep 15 gravity 1.030 informati informati 2017 of Urine on in on in 10:00 PM source source data data Urobili 0.2 NEG E.U./dL No No Sep 15 nogen informa informa 2017 [Presen tion in tion in 10:00 ce] in source source PM Urine data data by Test strip Troponin I.cardiac [Mass/volume] in Serum or Plasma Observa Value Referen Units Interpr Notes Date tion ce etation Range Troponin 0.00 - ng/mL Normal No Sep 15 I.cardiac 0.06 informati 2017 7:10 on in PM [Mass/vol source ume] in data Serum or Plasma UPPER RESPIRATORY PANEL,PCR Observa Value Referen Units Interpr Notes Date tion ce etation Range Adenovi NOT NOT No No No Sep 15 erin DNA DETECTE DETECTE informa informa informa 2017 D tion in tion in tion in 5:50 PM [Presen source source source ce] in data data data Unspeci fied specime n by Probe & target amplifi cation method Bordete NOT NOT No No No Sep 15 lla DETECTE DETECTE informa informa informa 2017 pertuss D tion in tion in tion in 5:50 PM is DNA source source source [Presen data data data ce] in Unspeci fied specime n by Probe & target amplifi cation method Chlamyd NOT NOT No No No Sep 15 ophila DETECTE DETECTE informa informa informa 2017 pneumon D tion in tion in tion in 5:50 PM iae DNA source source source data data data [Presen ce] in Unspeci fied specime n by Probe & target amplifi cation method SARS NOT NOT No No No Sep 15 coronav DETECTE DETECTE informa informa informa 2017 irus D tion in tion in tion in 5:50 PM RNA source source source [Presen data data data ce] in Unspeci fied specime n by Probe & target amplifi cation method Human NOT NOT No No No Sep 15 coronav DETECTE DETECTE informa informa informa 2017 irus D tion in tion in tion in 5:50 PM HKU1 source source source RNA data data data detecti on by SARS NOT NOT No No No Sep 15 coronav DETECTE DETECTE informa informa informa 2017 irus D tion in tion in tion in 5:50 PM RNA source source source [Presen data data data ce] in Unspeci fied specime n by Probe & target amplifi cation method SARS NOT NOT No No No Sep 15 coronav DETECTE DETECTE informa informa informa 2017 irus D tion in tion in tion in 5:50 PM RNA source source source [Presen data data data ce] in Unspeci fied specime n by Probe & target amplifi cation method Influen NOT NOT No No No Sep 15 za DETECTE DETECTE informa informa informa 2017 virus A D tion in tion in tion in 5:50 PM H3 RNA source source source data data data [Presen ce] in Unspeci fied specime n by Probe & target amplifi cation method Influen NOT NOT No No No Sep 15 za DETECTE DETECTE informa informa informa 2017 virus A D tion in tion in tion in 5:50 PM H1 RNA source source source data data data [Presen ce] in Isolate by Probe & target amplifi cation method Influen NOT NOT No No No Sep 15 za DETECTE DETECTE informa informa informa 2017 virus A D tion in tion in tion in 5:50 PM H1 RNA source source source data data data [Presen ce] in Unspeci fied specime n by Probe & target amplifi cation method Influen NOT NOT No No No Sep 15 za DETECTE DETECTE informa informa informa 2017 virus B D tion in tion in tion in 5:50 PM RNA source source source [Presen data data data ce] in Unspeci fied specime n by Probe & target amplifi cation method Influen NOT NOT No No No Sep 15 za DETECTE DETECTE informa informa informa 2017 virus A D tion in tion in tion in 5:50 PM RNA source source source [Presen data data data ce] in Unspeci fied specime n by Probe & target amplifi cation method Human NOT NOT No No No Sep 15 metapne DETECTE DETECTE informa informa informa 2017 umoviru D tion in tion in tion in 5:50 PM s Ag source source source [Presen data data data ce] in Unspeci fied specime n Mycopla NOT NOT No No No Sep 15 sma DETECTE DETECTE informa informa informa 2017 pneumon D tion in tion in tion in 5:50 PM iae DNA source source source data data data [Presen ce] in Unspeci fied specime n by Probe & target amplifi cation method Parainf NOT NOT No No No Sep 15 luenza DETECTE DETECTE informa informa informa 2017 virus 1 D tion in tion in tion in 5:50 PM RNA source source source [Presen data data data ce] in Unspeci fied specime n by Probe & target amplifi cation method Parainf NOT NOT No No No Sep 15 luenza DETECTE DETECTE informa informa informa 2017 virus 2 D tion in tion in tion in 5:50 PM RNA source source source [Presen data data data ce] in Unspeci fied specime n by Probe & target amplifi cation method Parainf NOT NOT No No No Sep 15 luenza DETECTE DETECTE informa informa informa 2017 virus 3 D tion in tion in tion in 5:50 PM RNA source source source [Presen data data data ce] in Unspeci fied specime n by Probe & target amplifi cation method Parainf NOT NOT No No No Sep 15 luenza DETECTE DETECTE informa informa informa 2017 virus 4 D tion in tion in tion in 5:50 PM RNA source source source [Presen data data data ce] in Isolate by Probe & target amplifi cation method Rhinovi NOT NOT No No No Sep 15 erin+Ent DETECTE DETECTE informa informa informa 2017 eroviru D tion in tion in tion in 5:50 PM s RNA source source source [Presen data data data ce] in Unspeci fied specime n by Probe & target amplifi cation method Respira NOT NOT No No No Sep 15 tory DETECTE DETECTE informa informa informa 2017 syncyti D tion in tion in tion in 5:50 PM al source source source virus data data data RNA [Presen ce] in Unspeci fied specime n by Probe & target amplifi cation method Streptococcus pyogenes Ag [Presence] in Unspecified specimen Observa Value Referen Units Interpr Notes Date tion ce etation Range Collected by nurse? Y Hold specimen in OE? N Strepto NEGATIV No No No No Sep 15 coccus E informa informa informa informa 2017 pyogene tion in tion in tion in tion in 5:50 PM s Ag source source source source [Presen data data data data ce] in Unspeci fied specime n Digoxin [Mass/volume] in Serum or Plasma Observa Value Referen Units Interpr Notes Date tion ce etation Range Digoxin 1.15 - ng/mL Normal No Sep 15 [Mass/vol 2.56 informati 2017 2:05 ume] in on in PM Serum or source Plasma data Cardiac enzymes Observa Value Referen Units Interpr Notes Date tion ce etation Range Creatine 0 - 4.0 U/L Normal No Sep 15 kinase.MB informati 2017 2:05 /Creatine on in PM source kinase.to data wicho [Ratio] in Serum or Plasma Creatine 0.0 - 3.6 ng/mL Normal No Sep 15 kinase.MB informati 2017 2:05 on in PM [Mass/vol source ume] in data Serum or Plasma Creatine 26 - 192 U/L Normal No Sep 15 kinase informati 2017 2:05 [Enzymati on in PM c source activity/ data volume] in Serum or Plasma Troponin 0.00 - ng/mL Normal No Sep 15 I.cardiac 0.06 informati 2017 2:05 on in PM [Mass/vol source ume] in data Serum or Plasma Comprehensive metabolic 2000 panel in Serum or Plasma Observa Value Referen Units Interpr Notes Date tion ce etation Range Albumin/G 1.1 - 1.8 No Low No Sep 15 lobulin informati informati 2017 2:05 [Mass on in on in PM ratio] in source source Serum or data data Plasma Albumin 3.4 - 5.0 gm/dL Low No Sep 15 [Mass/vol informati 2017 2:05 ume] in on in PM Serum or source Plasma data Alkaline 46 - 116 U/L Normal No Sep 15 phosphata informati 2017 2:05 se on in PM [Enzymati source c data activity/ volume] in Serum or Plasma Bilirubin 0.2 - 1.0 mg/dL Normal No Sep 15 .total informati 2017 2:05 [Mass/vol on in PM ume] in source Serum or data Plasma Urea 7 - 18 mg/dL High No Sep 15 nitrogen informati 2017 2:05 [Mass/vol on in PM ume] in source Serum or data Plasma Calcium 8.5 - mg/dL Normal No Sep 15 [Mass/vol 10.1 informati 2017 2:05 ume] in on in PM Serum or source Plasma data Chloride 98 - 107 mmoL/L Normal No Sep 15 [Moles/vo informati 2017 2:05 lume] in on in PM Serum or source Plasma data Carbon 21.0 - mmoL/L Normal No Sep 15 dioxide, 32.0 informati 2017 2:05 total on in PM [Moles/vo source lume] in data Serum or Plasma Creatinin 0.55 - mg/dL High No Sep 15 e 1.02 informati 2017 2:05 [Mass/vol on in PM ume] in source Serum or data Plasma Creatinin 50 - 200 ML/MIN Low No Sep 15 e renal informati 2017 2:05 clearance on in PM source predicted data by Cockcroft -Gault formula Estimated 59- ML/MIN Low alert REFERENCE Sep 15 RANGE: 2017 2:05 glomerula >60 PM r ML/MIN/1. filtratio 73 SQUARE n rate METERSIf (GF this patient is -A merican, then multiply theresult by 1.210. Globulin 1.3 - 3.2 gm/dL High No Sep 15 [Mass/vol informati 2017 2:05 ume] in on in PM Serum source data Glucose 74 - 106 mg/dL High No Sep 15 [Mass/vol informati 2017 2:05 ume] in on in PM Serum or source Plasma data Potassium 3.5 - 5.1 mmoL/L Normal No Sep 15 informati 2017 2:05 [Moles/vo on in PM lume] in source Serum or data Plasma Sodium 136 - 145 mmoL/L Normal No Sep 15 [Moles/vo informati 2017 2:05 lume] in on in PM Serum or source Plasma data Aspartate 15 - 37 U/L Low No Sep 15 informati 2017 2:05 aminotran on in PM sferase source [Enzymati data c activity/ volume] in Serum or Plasma Alanine 12 - 78 U/L Normal No Sep 15 aminotran informati 2017 2:05 sferase on in PM [Enzymati source c data activity/ volume] in Serum or Plasma Protein 6.4 - 8.2 gm/dL High No Sep 15 [Mass/vol informati 2017 2:05 ume] in on in PM Serum or source Plasma data CBC W Auto Differential panel in Blood Observa Value Referen Units Interpr Notes Date tion ce etation Range Granulocy 1.8 - 7.8 K/mm3 High No Sep 15 kunal informati 2017 2:05 [#/volume on in PM ] in source Blood by data Automated count Granulocy 37.0 - % Normal No Sep 15 kunal/100 80.0 informati 2017 2:05 leukocyte on in PM s in source Blood by data Automated count Hematocri 37.0 - % Low No Sep 15 t [Volume 47.0 informati 2017 2:05 on in PM Fraction] source of Blood data Hemoglobi 12.2 - g/dL Low No Sep 15 n 16.2 informati 2017 2:05 [Mass/vol on in PM ume] in source Blood data Lymphocyt 0.7 - 4.5 K/mm3 Normal No Sep 15 es informati 2017 2:05 [#/volume on in PM ] in source Unspecifi data ed specimen by Automated count Lymphocyt 10 - 50.0 % Normal No Sep 15 es informati 2017 2:05 [#/volume on in PM ] in source Unspecifi data ed specimen by Automated count Erythrocy 27 - 31.2 pg Normal No Sep 15 te mean informati 2017 2:05 corpuscul on in PM ar source hemoglobi data n [Entitic mass] Erythrocy 31.8 - g/dl Normal No Sep 15 te mean 35.4 informati 2017 2:05 corpuscul on in PM ar source hemoglobi data n concentra tion [Mass/vol ume] by Automated count Erythrocy 82.2 - fL Normal No Sep 15 te mean 97.8 informati 2017 2:05 corpuscul on in PM ar volume source [Entitic data volume] by Automated count Monocytes 0.1 - 1.0 K/mm3 Normal No Sep 15 informati 2017 2:05 [#/volume on in PM ] in source Blood by data Automated count Monocytes 1.7 - 9.3 % Normal No Sep 15 /100 informati 2017 2:05 leukocyte on in PM s in source Blood by data Automated count Platelets 142 - 424 K/mm3 Normal No Sep 15 informati 2017 2:05 [#/volume on in PM ] in source Blood data Erythrocy 4.2 - 5.4 M/mm3 Low No Sep 15 kunal informati 2017 2:05 [#/volume on in PM ] in source Amniotic data fluid Erythrocy 11.5 - % Normal No Sep 15 te 17.5 informati 2017 2:05 distribut on in PM ion width source [Entitic data volume] by Automated count Leukocyte 4.8 - K/mm3 Normal No Sep 15 s 10.8 informati 2016 2:05 [#/volume on in PM ] in source Blood data
--- OUTSIDE RECORDS SUMMARY | 2016-12-06 12:45 | External Medical Summary Rpt ---
Author Author [facility] [employer], [facility] [employer] Organization [facility] [employer] Address [...]
--- OUTSIDE RECORDS SUMMARY | 2016-12-06 14:01 | External Medical Summary Rpt ---
Author Author , HEYDI SOLIZ Address Unknown Phone [email or web address] Immunization Name Date Rout CVX Reac Dose Comm Prov Is Faci e tion ent ider Refu lity Give sed n Infl 09-2 Intr 0.5 Hist PD20 No PD20 uenz 0-20 amus mL oric 255 255 a 17 cula al Quad r Info rmat W/Pr ion es - Sour ce Unsp ecif ied PCV1 09-2 Intr 133 0.5 Hist BRIAN No RITE 3 9-20 amus mL oric ENCE AID0 16 cula al 3938 r Info JANET rmat H ion - Sour ce Unsp ecif ied Infl 09-2 Intr 135 0.5 Hist KHAF No RITE uenz 9-20 amus mL oric CUAUHTEMOC AID0 a, 16 cula al AYMA 3938 High r Info N rmat Dose ion - Sour ce Unsp ecif ied
--- OUTSIDE RECORDS SUMMARY | 2016-12-06 14:01 | External Medical Summary Rpt ---
Author Author , HEYDI MAURERJOSEPH Address Unknown Phone [email or web address] Providers Care Welt Edge Rounder Name Role Phone Issa Nuñez MD, Unavailable Unavailable Issa Nuñez MD Purpose Continuity of Care Document - 05-01-2012 through 2016 Problems Code Diagnosis DOS Provider Status 780.2 Syncope [facility] Allergies, Adverse Reactions, Alerts Type Allergy to [...] Iglesias MD (ER) 3 11:13 3 14:32 [facility]
--- OUTSIDE RECORDS SUMMARY | 2016-12-06 14:01 | External Medical Summary Rpt ---
Author Author , HEYDI MAURERJOSEPH Address Unknown Phone [email or web address] Providers Care Alumni Relations Officer Name Role Phone Issa Nuñez MD, Unavailable Unavailable Issa Nuñez MD Purpose Continuity of Care Document - 05-01-2012 through 2016 Problems Code Diagnosis DOS Provider Status 780.2 Syncope [facility] Allergies, Adverse Reactions, Alerts Type Allergy [...] Iglesias MD (ER) 3 11:13 3 14:32 [facility]
--- OUTSIDE RECORDS SUMMARY | 2016-12-06 14:01 | External Medical Summary Rpt ---
Author Author , HEYDI SOLIZ Address Unknown Phone [email or web address] [email or web address] Name Date Rout CVX Reac Dose [...]
== END 2016-11-13 09:31 | disposition home or self-care (01) ==
LOC: ER 13:56 → 2ND 15:24
PROVIDERS: Emergency Medicine; Internal Medicine Adolescent Medicine
DX: N17.9 Acute kidney failure, unspecified (principal); R55 Syncope and collapse; I48.2 Chronic atrial fibrillation; I95.1 Orthostatic hypotension; R50.9 Fever, unspecified; E03.9 Hypothyroidism, unspecified; K21.9 Gastro-esophageal reflux disease without esophagitis; J44.9 Chronic obstructive pulmonary disease, unspecified; I25.2 Old myocardial infarction; I50.9 Heart failure, unspecified; Z79.01 Long term (current) use of anticoagulants; Z79.899 Other long term (current) drug therapy; Z95.1 Presence of aortocoronary bypass graft; Z95.5 Presence of coronary angioplasty implant and graft; Z95.0 Presence of cardiac pacemaker
CPT/HCPCS: G0378

== ENCOUNTER → 2016-11-16 | Outpatient (CLI) | payer MEDICARE, BC ==
[~2016-11-16] MED LIST changes: +COREG 3.125M3.125 MG PO
[2016-11-16 10:53] LABS: BUN 23 mg/dL (7-18); GFR (ESTIMATED) 25 ML/MIN (59-)
== END ==
LOC: LAB 10:19
PROVIDERS: Internal Medicine Adolescent Medicine
DX: N17.9 Acute kidney failure, unspecified (principal)